=== PATIENT | male | born 1945 | race African-American/Black ===

== ENCOUNTER 2018-12-17 08:40 | Inpatient (IN) | payer OTHER ==
--- OUTSIDE RECORDS SUMMARY | 2018-12-17 08:42 | XMS REPORT ---
:1945 Author Organization eClinicalWorks Care Team Providers Name Role Phone Montano, Na Provider Role Unavailable Allergies, Adverse Reactions, Alerts Substance Reaction Event Type N.K.D.A. Info Not Available Non Drug Allergy Problems Problem Type Condition Code Onset Dates Condition Status Assessment Weakness R53.1 Active Assessment Unsteady gait R26.81 Active Assessment Pure hypercholesterolemia E78.00 Active Assessment PAD (peripheral artery disease) I73.9 Active Assessment Essential hypertension I10 Active Assessment Pacemaker Z95.0 Active Problem Swelling R60.9 Active Assessment Chronic congestive heart failure, I50.9 Active unspecified heart failure type Problem High cholesterol E78.00 Active Assessment Chronic a-fib I48.2 Active Problem Sinus problem J34.9 Active Problem Reflux K21.9 Active Problem Pure hypercholesterolemia E78.00 Active Problem Primary osteoarthritis of both M17.0 Active knees Problem Circulation problem I99.9 Active Assessment Acute pain of left knee M25.562 Active Assessment Bilateral lower extremity edema R60.0 Active Problem PAD (peripheral artery disease) I73.9 Active Assessment Primary osteoarthritis of both M17.0 Active knees Problem Chronic congestive heart failure, I50.9 Active unspecified heart failure type Problem Bilateral lower extremity edema R60.0 Active Problem Abnormal heart rhythm I49.9 Active Problem Ulcer L98.499 Active Problem Chronic a-fib I48.2 Active Problem Pacemaker Z95.0 Active Problem Unsteady gait R26.81 Active Problem Erectile dysfunction F52.21 Active Problem Essential hypertension I10 Active Problem Weakness R53.1 Active Problem HTN (hypertension) I10 Active Medications Medication Code Code Instructions Start End Date Status Dosage System Date Zestoretic [facility][NOTE 3] 56750824312 20-25 MG Orally Active 1 tablet Once a day Metoprolol [facility][NOTE 3] 28677570431 100 MG Orally Active 1 tablet Tartrate Twice a day with food Breo Ellipta [facility][NOTE 3] 48568707418 100-25 MCG/INH Active 1 puff Inhalation Once a day Results No Known Results Summary Purpose eClinicalWorks Submission
--- OUTSIDE RECORDS SUMMARY | 2018-12-17 08:42 | XMS REPORT ---
:1945 Author Organization eClinicalWorks Care Team Providers Name Role Phone Montano, Na Provider Role Unavailable Allergies, Adverse Reactions, Alerts Substance Reaction Event Type N.K.D.A. Info Not Available Non Drug Allergy Problems Problem Type Condition Code Onset Dates Condition Status Assessment Weakness R53.1 Active Assessment Unsteady gait R26.81 Active Assessment PAD (peripheral artery disease) I73.9 Active Assessment Pacemaker Z95.0 Active Assessment Chronic congestive heart failure, I50.9 Active unspecified heart failure type Problem Swelling R60.9 Active Assessment Primary osteoarthritis of both M17.0 Active knees Problem High cholesterol E78.00 Active Assessment Bilateral lower extremity edema R60.0 Active Problem Sinus problem J34.9 Active Problem Reflux K21.9 Active Problem Pure hypercholesterolemia E78.00 Active Problem Primary osteoarthritis of both M17.0 Active knees Problem Circulation problem I99.9 Active Assessment Essential hypertension I10 Active Assessment Pure hypercholesterolemia E78.00 Active Problem PAD (peripheral artery disease) I73.9 Active Assessment Chronic a-fib I48.2 Active Problem Chronic congestive heart failure, I50.9 Active [...] End Date Status Dosage System Date Zestoretic [facility] 39101933793 20-25 MG Orally Active 1 tablet Once a day Metoprolol [facility] 44737258521 100 MG Orally Active 1 tablet Tartrate Twice a day with food Breo Ellipta ND 05394158317 100-25 MCG/INH Active 1 puff Inhalation Once a day Results No Known Results Summary Purpose eClinicalWorks Submission
--- OUTSIDE RECORDS SUMMARY | 2018-12-17 08:42 | XMS REPORT ---
:1945 [facility] Team Providers Name Role Phone Montano, Na Provider Role Unavailable Allergies, Adverse Reactions, Alerts Substance Reaction Event Type N.K.D.A. Info Not Available Non Drug Allergy Problems Problem Type Condition Code Onset Dates Condition Status Assessment Weakness R53.1 Active Assessment Seasonal allergies J30.2 Active Assessment Unsteady gait R26.81 Active Assessment PAD (peripheral artery disease) I73.9 Active Assessment Pacemaker Z95.0 Active Assessment Chronic congestive heart failure, I50.9 Active unspecified heart failure type Assessment Primary osteoarthritis of both M17.0 Active knees Problem High cholesterol E78.00 Active Assessment Bilateral lower extremity edema R60.0 Active Problem Sinus problem J34.9 Active Assessment Chronic a-fib I48.2 Active Problem Pure hypercholesterolemia E78.00 Active Problem Bilateral lower extremity edema R60.0 Active Problem Reflux K21.9 Active Problem Primary osteoarthritis of both M17.0 Active knees Problem PAD (peripheral artery disease) I73.9 Active Assessment Essential hypertension I10 Active Problem Seasonal allergies J30.2 Active Assessment Pure hypercholesterolemia E78.00 Active Problem Ulcer L98.499 Active Problem Chronic congestive heart failure, I50.9 Active unspecified heart failure type Problem Circulation problem I99.9 Active Problem Abnormal heart rhythm I49.9 Active Problem Pacemaker Z95.0 Active Problem Weakness R53.1 Active Problem Unsteady gait R26.81 Active Problem Chronic a-fib I48.2 Active Problem Essential hypertension I10 Active Problem Swelling R60.9 Active Problem HTN (hypertension) I10 Active Problem Erectile dysfunction F52.21 Active Medications Medication Code Code Instructions Start End Date Status Dosage System Date Breo Ellipta [facility] 95638469638 100-25 MCG/INH Active 1 puff Inhalation Once a day Flonase ND 98818219530 50 MCG/DOSE Apr 30, Active 2 spray in Nasally Once a 2019 each day nostril Zestoretic [facility] 96501547959 20-25 MG Orally Active 1 tablet Once a day Cetirizine HCl [facility] 66301719767 10 MG Orally Apr 30June Active 1 tablet Once a day in AM 2018 Metoprolol [facility] 17149216294 100 MG Orally Active 1 tablet Tartrate Twice a day with food Results No Known Results Summary Purpose eClinicalWorks Submission
--- OUTSIDE RECORDS SUMMARY | 2018-12-17 08:43 | XMS REPORT ---
:1945 [facility] Team Providers Name Role Phone Montano, Na Provider Role Unavailable Allergies, Adverse Reactions, Alerts Substance Reaction Event Type N.K.D.A. Info Not Available Non Drug Allergy Problems Problem Type Condition Code Onset Dates Condition Status Assessment Chronic congestive heart failure, I50.9 Active unspecified heart failure type Assessment Pure hypercholesterolemia E78.00 Active Assessment PAD (peripheral artery disease) I73.9 Active Assessment Muscle cramps R25.2 Active Assessment Neuropathy G62.9 Active Problem Pure hypercholesterolemia E78.00 Active Assessment Bilateral lower extremity edema R60.0 Active Problem Reflux K21.9 Active Assessment Chronic a-fib I48.2 Active Problem Bilateral lower extremity edema R60.0 Active Problem Ulcer L98.499 Active Problem Chronic congestive heart failure, I50.9 Active unspecified heart failure type Problem Seasonal allergies J30.2 Active Problem Primary osteoarthritis of both M17.0 Active knees Problem Unsteady gait R26.81 Active Problem Neuropathy G62.9 Active Assessment Essential hypertension I10 Active Problem Circulation problem I99.9 Active Problem Abnormal heart rhythm I49.9 Active Problem PAD (peripheral artery disease) I73.9 Active Problem Essential hypertension I10 Active Problem Weakness R53.1 Active Problem HTN (hypertension) I10 Active Problem Chronic a-fib I48.2 Active Problem Pacemaker Z95.0 Active Problem High cholesterol E78.00 Active Problem Sinus problem J34.9 Active Problem Erectile dysfunction F52.21 Active Problem Swelling R60.9 Active Medications Medication Code Code Instructions Start End Date Status Dosage System Date Cetirizine HCl [facility] 88587636532 10 MG Orally Apr 30June Active 1 tablet Once a day in AM 2018 Flonase ND 21951203085 50 MCG/DOSE Apr 30, Active 2 spray in Nasally Once a 2019 each day nostril Breo Ellipta ND 14848027971 100-25 MCG/INH Active 1 puff Inhalation Once a day Zestoretic [facility] 06379954409 20-25 MG Orally Active 1 tablet Once a day Metoprolol [facility] 23941792754 100 MG Orally Active 1 tablet Tartrate Twice a day with food Gabapentin [facility] 69326762535 300 MG Orally Jun 10, Active 1 capsule Three times a 2018 day Gabapentin [facility] 00519639799 300 MG Orally Jun 10, Active 1 capsule Three times a 2018 day Results No Known Results Summary Purpose eClinicalWorks Submission
--- OUTSIDE RECORDS SUMMARY | 2018-12-17 08:43 | XMS REPORT ---
:1945 [facility] Address [address] [place] [address] Dr. Weller [address] [place] [id number] Care Team Providers Name Role Phone Unavailable Unavailable Unavailable Problems This patient has no known problems. Allergies, Adverse Reactions, Alerts This patient has no known allergies or adverse reactions. Medications This patient has no known medications.
--- OUTSIDE RECORDS SUMMARY | 2018-12-17 08:43 | XMS REPORT ---
:1945 Author Organization eClinicalWorks Care Team Providers Name Role Phone Montano, Na Provider Role Unavailable Allergies No Known Allergies Problems Problem Type Condition Code Onset Dates Condition Status Problem Bilateral lower extremity edema R60.0 Active Problem Ulcer L98.499 Active Problem Chronic congestive heart failure, I50.9 Active unspecified heart failure type Problem Seasonal allergies J30.2 Active Problem Unsteady gait R26.81 Active Problem Primary osteoarthritis of both M17.0 Active knees Problem Neuropathy G62.9 Active Problem Circulation problem I99.9 Active Problem Abnormal heart rhythm I49.9 Active Problem PAD (peripheral artery disease) I73.9 Active Problem Essential hypertension I10 Active Problem Weakness R53.1 Active Problem HTN (hypertension) I10 Active Problem Chronic a-fib I48.2 Active Problem Pacemaker Z95.0 Active Problem High cholesterol E78.00 Active Problem Sinus problem J34.9 Active Problem Erectile dysfunction F52.21 Active Problem Pure hypercholesterolemia E78.00 Active Problem Swelling R60.9 Active Problem Reflux K21.9 Active Medications Medication Code Code Instructions Start End Status Dosage System Date Date Gabapentin [facility] 53596637023 300 MG Orally Jun 10, Active 1 capsule Three times a 2019 day Flonase [facility] 23123856119 50 MCG/DOSE Apr 30, Active 2 spray in Nasally Once a 2018 each day nostril Albuterol [facility] [address]-90 (2.5 MG/3ML) Active INHALE 1 Sulfate 0.083% VIAL BY MOUTH VIA NEBULIZER 4 TIMES A DAY Lisinopril [facility] [address]-82 5 MG Orally Active 1 tablet twice a day Apixaban [facility] [address]-93 5 MG Orally Active not defined twice a day Breo Ellipta [facility] 72354246982 100-25 MCG/INH Active 1 puff Inhalation Once a day Metoprolol [facility] 75785198906 100 MG Orally Active 1 tablet Tartrate Twice a day with food Ipratropium [facility] [address]-10 0.02 % Active as directed [place] Inhalation 2.5 ml 4 times a day Digoxin [facility] 60936855785 250 MCG Orally Active 1 tablet Once a day Gabapentin [facility] 06347306590 300 MG Orally Jun 10, Active 1 capsule Three times a 2018 day Aspirin [facility] 98781883671 81 MG Orally Active 1 tablet Once a day Tamsulosin HCl [facility] [address]-62 0.4 MG Orally Active 1 capsule Once a day at bedtime Furosemide [facility] [address]-86 80 MG Orally Active 2 tablets Twice a day Zestoretic [facility] 93411923135 20-25 MG Orally Active 1 tablet Once a day Results No Known Results Summary Purpose eClinicalWorks Submission
--- OUTSIDE RECORDS SUMMARY | 2018-12-17 08:43 | XMS REPORT ---
[...] R60.9 Active Problem Reflux K21.9 Active Medications No Known Medications Results No Known Results Summary Purpose eClinicalWorks Submission
[2018-12-17 09:22] LABS: Protime INR 1.3
[2018-12-17 09:26] LABS: Basophils % 0.9 % (0-1.3); Hematocrit 36.5 % (39.6-49.0); Lymphocytes % 24.5 % (15.3-44.8); RBC Red Blood Cell Count 3.97 M/uL (4.33-5.43)
[2018-12-17] MEDS ORDERED: FUROSEMIDE 100 MG/10 ML VIAL IV ONE (09:29)
[2018-12-17] MEDS ORDERED: ONDANSETRON 4 MG/2 ML VIAL ONE (09:29)
[2018-12-17] MEDS ORDERED: NITROGLYCERIN 1 GM PKT TD ONE (09:29)
[2018-12-17] MEDS ORDERED: MORPHINE 2 MG/ML SYR ONE (09:29)
[2018-12-17 09:38] LABS: Albumin 3.1 g/dL (3.4-5.0); Bilirubin Direct 0.9 mg/dL (0-0.2); Bilirubin Total 3.1 mg/dL (0.2-1.0); Magnesium 2.1 mg/dL (1.8-2.4); Potassium 3.8 mmol/L (3.5-5.1); Protein, Total 7.2 g/dL (6.4-8.2); Troponin (Emerg Dept Use Only) 0.04 ng/mL (0.0-0.045)
[2018-12-17] MEDS ORDERED: ASPIRIN 81 MG CHEWABLE TABLET ONE (09:40)
[2018-12-17] MEDS ORDERED: METOPROLOL TAR 50 MG TAB ONE (09:40)
[2018-12-17] MEDS ORDERED: FAMOTIDINE 20 MG/2 ML VIAL IV ONE (09:40)
[2018-12-17] MEDS ORDERED: ENOXAPARIN 100 MG/ML SYR SQ ONE (09:40)
--- NOTE | 2018-12-17 10:38 | ER ---
Nurse's Notes [facility] Name: Myke Summers Age: 73 yrs Sex: Male : 1945 Arrival Date: 12/17/2018 Time: 08:45 Bed 5 Private MD: Anayeli Montano Diagnosis: Unspecified combined systolic (congestive) and diastolic (congestive) heart failure;Dyspnea;Hypoxemia;Atrial fibrillation and flutter-with RVR Presentation: 12/17 08:53 Presenting complaint: Bilateral lower leg swelling, SOB, and productive cough with hb whitish sputum x 2 day. Transition of care: patient was not received from another setting of care. Onset of symptoms was December 17, 2018. Risk Assessment: Do you want to hurt yourself or someone else? Patient reports no desire to harm self or others. Care prior to arrival: None. 08:53 Acuity: SIA 2 hb 08:53 Method Of Arrival: Ambulatory hb 08:55 Initial Sepsis Screen: Does the patient meet any 2 criteria? RR > 20 per min. HR > 90 sv bpm. Yes Does the patient have a suspected source of infection? Yes: Productive cough/pneumonia. Triage Assessment: 08:55 Respiratory: the patient has moderate shortness of breath. sv Historical: - Allergies: 08:54 No Known Allergies; hb - PMHx: 08:56 CHF; hb - Immunization history:: Adult Immunizations up to date. - Social history:: Smoking status: Patient/guardian denies using tobacco. - Ebola Screening: : No symptoms or risks identified at this time. - Family history:: not pertinent. Screenin:52 Abuse screen: Denies threats or abuse. Denies injuries from another. Nutritional sv screening: No deficits noted. Tuberculosis screening: No symptoms or risk factors identified. Fall Risk None identified. Assessment: 08:55 Reassessment: Pt wears O2 \T\ 3L per NC at home, pt came with no O2. O2 sat was 84% and sv placed on O2 \T\ 3L. General: Appears in no apparent distress. uncomfortable, well developed, Behavior is calm, cooperative, appropriate for age. Pain: Denies pain. Neuro: Level of Consciousness is awake, alert, obeys commands, Oriented to person, place, time, situation, Moves all extremities. Full function Gait is steady, Speech is normal. Cardiovascular: Heart tones S1 S2 present Patient's skin is warm and dry. Rhythm is atrial fibrillation With PVC's Chest pain is denied. Respiratory: Airway is patent Respiratory effort is even, unlabored, Respiratory pattern is symmetrical, tachypnea Breath sounds are diminished bilaterally. Derm: Skin is pink, warm \T\ dry. 08:55 EENT: Sclera/Cornea icteric. sv 09:32 Reassessment: Patient appears in no apparent distress at this time. No changes from sv previously documented assessment. Patient and/or family updated on plan of care and expected duration. Pain level reassessed. Patient is alert, oriented x 3, equal unlabored respirations, skin warm/dry/pink. 11:43 Reassessment: Patient appears in no apparent distress at this time. Patient and/or sv family updated on plan of care and expected duration. Pain level reassessed. Patient is alert, oriented x 3, equal unlabored respirations, skin warm/dry/pink. 13:16 Reassessment: Patient appears in no apparent distress at this time. Patient and/or sv family updated on plan of care and expected duration. Pain level reassessed. Patient is alert, oriented x 3, equal unlabored respirations, skin warm/dry/pink. Patient states symptoms have improved. Vital Signs: 08:52 BP 178 / 110; Pulse 107; Resp 28; Temp 97.9; Pulse Ox 84% on R/A; Weight 97.52 kg; hb Height 6 ft. 1 in. (185.42 cm); Pain 0/10; 09:49 BP 145 / 101; Pulse 101; Resp 30; Pulse Ox 94% on 4 lpm NC; sv 10:26 Pain 6/10; sv 10:46 BP 149 / 98; Pulse 84; Resp 28; Pulse Ox 96% on 4 lpm NC; sv 11:43 BP 138 / 97; Pulse 79; Resp 26; Pulse Ox 97% on 4 lpm NC; sv 12:35 BP 130 / 93; Pulse 86; Resp 16; Pulse Ox 96% on 3 lpm NC; sv 13:04 BP 142 / 90; Pulse 89; Resp 14; Pulse Ox 100% on 3 lpm NC; sv 08:52 Body Mass Index 28.37 (97.52 kg, 185.42 cm) ED Course: 08:45 Patient arrived in ED. dl4 08:45 Anayeli Montano MD is Private Physician. dl4 08:45 Initial lab(s) drawn, by me, sent to lab. First set of blood cultures drawn by me, EKG jb1 done, by laboratory development technician. reviewed by David Kennedy MD. 08:47 David Kennedy MD is Attending Physician. dima 08:51 Radha Espinal, RN is Primary Nurse. sv 08:52 Arm band placed on. sv 08:52 Patient has correct armband on for positive identification. Placed in gown. Bed in low sv position. Call light in reach. Adult w/ patient. teletypesetter monitor on. Pulse ox on. NIBP on. 08:54 Triage completed. hb 09:00 Second set of blood cultures drawn by me. jb1 09:10 X-ray(s) taken. sv 09:11 Inserted saline lock: 22 gauge in left forearm, using aseptic technique. Blood jb1 collected. 09:12 X-ray completed. Portable x-ray completed in exam room. Patient tolerated procedure jb2 well. 09:15 EKG done, by laboratory development technician. reviewed by David Kennedy MD. tc 09:17 XRAY Chest (1 view) In Process Unspecified. EDMS 10:34 Bhavana Tejeda MD is Hospitalizing Provider. dima 10:45 Awaiting bed assignment. sv 13:15 No provider procedures requiring assistance completed. Patient admitted, IV remains in sv place. intact. Administered Medications: 09:21 CANCELLED (Duplicate Order): morphine 2 mg Sub-Q once; RASS on ADMIN: Combtv4, Very dima Agttd3, Agttd2, Rstlss1, AlertClm0, Drwsy-1, Lt Sdtn-2, Mod Sdtn-3, Dp Sdtn-4, UnArsble-5 09:32 Drug: Nitro-Bid Ointment 2 % 1 inches Route: Transdermal; Site: anterior chest wall; sv 09:32 Drug: Zofran 4 mg Route: IVP; Site: right forearm; sv 09:48 Follow up: Response: No adverse reaction sv 09:34 Drug: morphine 2 mg {Note: RASS 0.} Route: IVP; Site: right forearm; sv 10:26 Follow up: Pain 6/10 Adult; Response: No adverse reaction; RASS: Alert and Calm (0) sv 09:36 Drug: Lasix 60 mg Route: IVP; Site: right forearm; sv 09:48 Follow up: Response: No adverse reaction sv 09:46 Drug: Aspirin 162 mg Route: PO; sv 10:26 Follow up: Response: No adverse reaction sv 09:46 Drug: Lovenox 90 mg Route: Sub-Q; Site: right lower abdomen; sv 10:26 Follow up: Response: No adverse reaction sv 09:47 Drug: Lopressor (metoprolol TARTRATE) 50 mg Route: PO; sv 10:26 Follow up: Response: No adverse reaction sv 09:47 Drug: Pepcid 20 mg Route: IVP; Site: right forearm; sv 10:26 Follow up: Response: No adverse reaction sv Output: 13:16 Urine: 1400ml (Voided); Total: 1400ml. sv Outcome: 10:38 Decision to Hospitalize by Provider. dima 13:15 Admitted to Tele accompanied by tech, via wheelchair, room 208, with oxygen, with sv chart, Report called to Tasha QUIJANO 13:15 Condition: stable 13:15 Instructed on the need for admit. 13:48 Patient left the ED. hb Signatures: Dispatcher [employer] EDMS Wade Madison jb1 Radha Espinal RN RN David Kennedy MD MD cha Buechter, Jesse jb2 Danuta Tse, development lead EKG [facility] Erlinda Mcnair RN RN hb Luna, David dl4 Corrections: (The following items were deleted from the chart) 09:48 09:34 morphine 2 mg IVP in right forearm sv sv
--- NOTE | 2018-12-17 10:39 | EDPHYS ---
Physician Documentation [facility] Name: Myke Summers Age: 73 yrs Sex: Male : 1945 Arrival Date: 12/17/2018 Time: 08:45 Bed 5 Private MD: Anayeli Montano ED Physician David Kennedy HPI: 12/17 09:30 This 73 yrs old Black Male presents to ER via Ambulatory with complaints of Leg dima Swelling, Breathing Difficulty. 09:30 The patient has shortness of breath at rest, with light activity. Onset: The dima symptoms/episode began/occurred 3 day(s) ago. The patient's shortness of breath has no apparent modifying factors. Associated signs and symptoms: Pertinent positives: non-productive cough, dizziness. Severity of symptoms: At their worst the symptoms were mild moderate in the emergency department the symptoms are unchanged. Historical: - Allergies: 08:54 No Known Allergies; hb - PMHx: 08:56 CHF; hb - Immunization history:: Adult Immunizations up to date. - Social history:: Smoking status: Patient/guardian denies using tobacco. - Ebola Screening: : No symptoms or risks identified at this time. - Family history:: not pertinent. ROS: 09:30 Constitutional: Negative for fever, chills, and weight loss, Eyes: Negative for injury, dima pain, redness, and discharge, ENT: Negative for injury, pain, and discharge, Neck: Negative for injury, pain, and swelling, Cardiovascular: Negative for chest pain, palpitations, and edema, Abdomen/GI: Negative for abdominal pain, nausea, vomiting, diarrhea, and constipation, Back: Negative for injury and pain, : Negative for injury, bleeding, discharge, and swelling, Skin: Negative for injury, rash, and discoloration, Neuro: Negative for headache, weakness, numbness, tingling, and seizure, Psych: Negative for depression, anxiety, suicide ideation, homicidal ideation, and hallucinations, Allergy/Immunology: Negative for hives, rash, and allergies, Endocrine: Negative for neck swelling, polydipsia, polyuria, polyphagia, and marked weight changes. 09:30 Respiratory: Positive for cough, shortness of breath, wheezing, expiratory. 09:30 MS/extremity: Positive for decreased range of motion, swelling, tenderness. Exam: 09:30 Constitutional: This is a well developed, well nourished patient who is awake, alert, dima and in no acute distress. Head/Face: Normocephalic, atraumatic. Eyes: Pupils equal round and reactive to light, extra-ocular motions intact. Lids and lashes normal. Conjunctiva and sclera are non-icteric and not injected. Cornea within normal limits. Periorbital areas with no swelling, redness, or edema. ENT: Nares patent. No nasal discharge, no septal abnormalities noted. Tympanic membranes are normal and external auditory canals are clear. Oropharynx with no redness, swelling, or masses, exudates, or evidence of obstruction, uvula midline. Mucous membranes moist. Neck: Trachea midline, no thyromegaly or masses palpated, and no cervical lymphadenopathy. Supple, full range of motion without nuchal rigidity, or vertebral point tenderness. No Meningismus. Chest/axilla: Normal chest wall appearance and motion. Nontender with no deformity. No lesions are appreciated. Abdomen/GI: Soft, non-tender, with normal bowel sounds. No distension or tympany. No guarding or rebound. No evidence of tenderness throughout. Back: No spinal tenderness. No costovertebral tenderness. Full range of motion. Male : Normal genitalia with no discharge or lesions. Skin: Warm, dry with normal turgor. Normal color with no rashes, no lesions, and no evidence of cellulitis. Neuro: Awake and alert, GCS 15, oriented to person, place, time, and situation. Cranial nerves II-XII grossly intact. Motor strength 5/5 in all extremities. Sensory grossly intact. Cerebellar exam normal. Normal gait. Psych: Awake, alert, with orientation to person, place and time. Behavior, mood, and affect are within normal limits. 09:30 Cardiovascular: Rate: tachycardic, Rhythm: irregularly irregular, Pulses: Pulses are 4+ in bilateral radial, brachial, femoral, popliteal, posterior tibial and and dorsalis pedis arteries.. Heart sounds: normal, Edema: 4+ edema to level of left midcalf and right midcalf, JVD: is noted bilaterally, to the angle of the jaw. Vital Signs: 08:52 BP 178 / 110; Pulse 107; Resp 28; Temp 97.9; Pulse Ox 84% on R/A; Weight 97.52 kg; hb Height 6 ft. 1 in. (185.42 cm); Pain 0/10; 09:49 BP 145 / 101; Pulse 101; Resp 30; Pulse Ox 94% on 4 lpm NC; sv 10:26 Pain 6/10; sv 10:46 BP 149 / 98; Pulse 84; Resp 28; Pulse Ox 96% on 4 lpm NC; sv 11:43 BP 138 / 97; Pulse 79; Resp 26; Pulse Ox 97% on 4 lpm NC; sv 12:35 BP 130 / 93; Pulse 86; Resp 16; Pulse Ox 96% on 3 lpm NC; sv 13:04 BP 142 / 90; Pulse 89; Resp 14; Pulse Ox 100% on 3 lpm NC; sv 08:52 Body Mass Index 28.37 (97.52 kg, 185.42 cm) hb MDM: 08:47 Patient medically screened. [facility] 09:33 Data reviewed: vital signs, nurses notes, lab test result(s), EKG, radiologic studies, dima plain films. 12/17 08:49 Order name: Basic Metabolic Panel; Complete Time: 10:14 [facility] 12/17 08:49 Order name: CBC with Diff; Complete Time: 10:14 [facility] 12/17 08:49 Order name: LFT's; Complete Time: 10:14 [facility] 12/17 08:49 Order name: Magnesium; Complete Time: 10:14 [facility] 12/17 08:49 Order name: NT PRO-BNP; Complete Time: 10:14 [facility] 12/17 08:49 Order name: PT-INR; Complete Time: 10:14 [facility] 12/17 08:49 Order name: Troponin (emerg Dept Use Only); Complete Time: 10:14 [facility] 12/17 08:49 Order name: Lipase; Complete Time: 10:14 [facility] 12/17 08:49 Order name: Urine Culture [facility] 12/17 08:58 Order name: Blood Culture Adult (2) 12/17 08:58 Order name: Ckmb; Complete Time: 10:14 12/17 08:58 Order name: CPK; Complete Time: 10:14 12/17 08:58 Order name: Lactate; Complete Time: 10:14 12/17 08:58 Order name: Procalcitonin; Complete Time: 10:14 12/17 08:49 Order name: XRAY Chest (1 view) [facility] 12/17 08:49 Order name: EKG; Complete Time: 08:51 [facility] 12/17 08:49 Order name: Cardiac monitoring; Complete Time: 08:51 [facility] 12/17 08:58 Order name: Urine Microscopic Only sv 12/17 09:33 Order name: Echo w/ Doppler [facility] 12/17 10:24 Order name: Diet Heart Healthy; Complete Time: 10:26 ar5 12/17 10:52 Order name: TSH [facility] 12/17 08:49 Order name: EKG - Nurse/Tech; Complete Time: 09:11 [facility] 12/17 08:49 Order name: IV Saline Lock; Complete Time: 09:12 [facility] 12/17 08:49 Order name: Labs collected and sent; Complete Time: 09:12 [facility] 12/17 08:49 Order name: O2 Per Protocol; Complete Time: 08:52 [facility] 12/17 08:49 Order name: O2 Sat Monitoring; Complete Time: 08:52 [facility] Administered Medications: 09:21 CANCELLED (Duplicate Order): morphine 2 mg Sub-Q once; RASS on ADMIN: Combtv4, Very dima Agttd3, Agttd2, Rstlss1, AlertClm0, Drwsy-1, Lt Sdtn-2, Mod Sdtn-3, Dp Sdtn-4, UnArsble-5 09:32 Drug: Nitro-Bid Ointment 2 % 1 inches Route: Transdermal; Site: anterior chest wall; sv 09:32 Drug: Zofran 4 mg Route: IVP; Site: right forearm; sv 09:48 Follow up: Response: No adverse reaction sv 09:34 Drug: morphine 2 mg {Note: RASS 0.} Route: IVP; Site: right forearm; sv 10:26 Follow up: Pain 6/10 Adult; Response: No adverse reaction; RASS: Alert and Calm (0) sv 09:36 Drug: Lasix 60 mg Route: IVP; Site: right forearm; sv 09:48 Follow up: Response: No adverse reaction sv 09:46 Drug: Aspirin 162 mg Route: PO; sv 10:26 Follow up: Response: No adverse reaction sv 09:46 Drug: Lovenox 90 mg Route: Sub-Q; Site: right lower abdomen; sv 10:26 Follow up: Response: No adverse reaction sv 09:47 Drug: Lopressor (metoprolol TARTRATE) 50 mg Route: PO; sv 10:26 Follow up: Response: No adverse reaction sv 09:47 Drug: Pepcid 20 mg Route: IVP; Site: right forearm; sv 10:26 Follow up: Response: No adverse reaction sv Disposition: 12/17/18 10:38 Hospitalization ordered by Bhavana Tejeda for Inpatient Admission. Preliminary diagnosis are Unspecified combined systolic (congestive) and diastolic (congestive) heart failure, Dyspnea, Hypoxemia, Atrial fibrillation and flutter - with RVR. - Bed requested for Telemetry/MedSurg (Inpatient). - Status is Inpatient Admission. hb - Condition is Fair. - Problem is new. - Symptoms have improved. UTI on Admission? No Signatures: Dispatcher [employer] EDRadha Valdez RN RN David Haines MD MD cha Baxter, Heather, RN RN hb Corrections: (The following items were deleted from the chart) 09:21 09:19 morphine 2 mg Sub-Q once; RASS on ADMIN: Combtv4, Very Agttd3, Agttd2, Rstlss1, dima AlertClm0, Drwsy-1, Lt Sdtn-2, Mod Sdtn-3, Dp Sdtn-4, UnArsble-5 ordered. dima 12:37 10:38 Hospitalization Ordered by Bhavana Tejeda MD for Inpatient Admission. Preliminary hb diagnosis is Unspecified combined systolic (congestive) and diastolic (congestive) heart failure; Dyspnea; Hypoxemia; Atrial fibrillation and flutter - with RVR. Bed requested for Telemetry/MedSurg (Inpatient). Status is Inpatient Admission. Condition is Fair. Problem is new. Symptoms have improved. UTI on Admission? No. dima 13:48 12:37 12/17/2018 10:38 Hospitalization Ordered by Bhavana Tejeda MD for Inpatient hb Admission. Preliminary diagnosis is Unspecified combined systolic (congestive) and diastolic (congestive) heart failure; Dyspnea; Hypoxemia; Atrial fibrillation and flutter - with RVR. Bed requested for Telemetry/MedSurg (Inpatient). Status is Inpatient Admission. Condition is Fair. Problem is new. Symptoms have improved. UTI on Admission? No. hb
--- NOTE | 2018-12-17 10:58 | RAD REPORT ---
EXAM DESCRIPTION: RAD - Chest Single View - 12/17/2018 9:16 am CLINICAL HISTORY: DYSPNEA Chest pain. COMPARISON: <Comparisons> FINDINGS: Portable technique limits examination quality. Mild interstitial pulmonary edema suspected. Area of airspace opacity in the right upper lobe lateral ly is suspicious for superimposed pneumonia. The heart is moderately enlarged with a multilead pacer device present.
[2018-12-17] MEDS ORDERED: ONDANSETRON 4 MG/2 ML VIAL IV PRN (11:15)
[2018-12-17] MEDS ORDERED: ACETAMINOPHEN 500 MG TAB PO PRN (11:15)
--- NOTE | 2018-12-17 13:48 | EKG ---
Test Date: 2018-12-17 Test Time: 09:02:58 Support Engineer: ANU MEASUREMENT RESULTS: Intervals: Rate: 107 WY: QRSD: 110 QT: 374 QTc: 499 Egan: P: WY: QRS: -21 T: 258 INTERPRETIVE STATEMENTS: Suspect unspecified pacemaker failure Atrial fibrillation with rapid ventricular response with premature ventricular or aberrantly conducted complexes Anteroseptal infarct, age undetermined ST & T wave abnormality, consider inferolateral ischemia Abnormal ECG Compared to ECG 04/03/2016 12:30:27 Ventricular premature complex(es) now present ST (T wave) deviation now present Possible ischemia now present Sinus rhythm no longer present Sinus arrhythmia no longer present Myocardial infarct finding still present Electronically Signed On 12-17-18 13:47:13 CDT by Dino Farah
--- NOTE | 2018-12-17 15:25 | ECHO ---
HEIGHT: 6 ft 1 in WEIGHT: 246 lb 5 oz DATE OF STUDY: 12/17/[address]: David Kennedy MD 2-DIMENSIONAL: YES M.MODE: YES DOPPLER: YES COLOR FLOW: YES TDS: PORTABLE: DEFINITY: BUBBLE STUDY: DIAGNOSIS: CHF CARDIAC HISTORY: CATHERIZATION: YES SURGERY: NO PROSTHETIC VALVE: NO PACEMAKER: YES MEASUREMENTS (cm) DIASTOLIC (NORMALS) SYSTOLIC (NORMALS) IVSd 1.4 (0.6-1.2) LA Diam 4.8 (1.9-4.0) LVEF 39% LVIDd 4.9 (3.5-5.7) LVIDs 4.0 (2.0-3.5) %FS 19% LVPWd 1.6 (0.6-1.2) Ao Diam 3.2 (2.0-3.7) 2 DIMENSIONAL ASSESSMENT: RIGHT ATRIUM: NORMAL LEFT ATRIUM: DILATED RIGHT VENTRICLE: PACEMAKER LEFT VENTRICLE: NORMAL SIZE TRICUSPID VALVE: NORMAL MITRAL VALVE: MITRAL ANNULAR CALCIFICATION PULMONIC VALVE: NORMAL AORTIC VALVE: SCLEROSIS PERICARDIAL EFFUSION: NONE AORTIC ROOT: NORMAL LEFT VENTRICULAR WALL MOTION: MODERATE GLOBAL HYPOKINESIS DOPPLER/COLOR FLOW: MILD MITRAL REGURGITATION AND TRICUSPID REGURGITATION. NORMAL RIGHT VENTRICULAR SYSTOLIC PRESSURE. COMMENTS: MILD MITRAL REGURGITATION AND TRICUSPID REGURGITATION. NORMAL RIGHT VENTRICULAR SYSTOLIC PRESSURE. MODERATE GLOBAL HYPOKINESIS. EF 39%. PACEMAKER IN RIGHT VENTRICLE. MITRAL ANNULAR CALCIFICATION. AORTIC SCLEROSIS. TECHNOLOGIST: ABRIL TATE
[2018-12-17] MEDS: FUROSEMIDE 40 MG/4 ML VIAL IV SCH (16:03)
[2018-12-17] MEDS: ALBUTEROL 2.5 MG/3 ML NEB SOL NEB SCH ×2 (16:10→20:00)
[2018-12-17 18:29] LABS: Urine Bacteria <20 /HPF (NONE SEEN); Urine Culture Reflex Order NOT NEEDED
[2018-12-17] MEDS: APIXABAN 5 MG TABLET PO SCH (21:42)
[2018-12-17] MEDS: METOPROLOL TAR 50 MG TAB PO SCH (21:42)
[2018-12-17] MEDS: TAMSULOSIN 0.4 MG SR CAP PO SCH (21:42)
--- NOTE | 2018-12-17 22:10 | CON ---
Date of Consultation: 12/17/2018 Reason For Consultation: Congestive heart failure. History Of Present Illness: The patient is a 73-year-old black male, has had a history of congestive heart failure before pacemaker, hypertension. He is very noncompliant with his medication. He told me that he has not been taking it. He is not compliant with his diet. Came in with shortness of br eath, significant pedal edema, abdominal swelling. No chest pain. Had some diaphoresis, but no naus ea or vomiting. Has been having PND, orthopnea, palpitations, but no syncope. He has ruled out for an [place]. His troponin is negative. His BNP is 6097. Chest x-ray shows congestive heart failure. EKG shows a paced rhythm. Allergies: NONE. Review of Systems: Negative. Social History: Negative. Family History: Noncontributory. Medications: At home are supposed to be metoprolol and Lasix as well as lisinopril and magnesium and potassium, but he has not been taking any medicine. Physical Examination: Vital Signs: Stable. He was afebrile by the time I saw him. He is in sinus rhythm. HEENT: Negative. Neck: Supple with a 3 cm JVD bilaterally. No bruit. No thyromegaly. Chest: Revealed diffuse rales at both bases. Cardiac: Revealed a regular rhythm and rate with an S3 gallops. No murmurs or rubs. Abdomen: Positive for ascites. Extremities: Revealed 3+ edema up to the thigh. Skin: Dry and intact. Pulses were present. Neurological: He was nonfocal. Diagnostic Data: As stated earlier. Impression And Plan: 1.Acute on chronic exacerbation of congestive heart failure. 2.Atrial fibrillation that is paroxysmal and has resolved. 3.Hypertension, well controlled. 4.History of pacemaker placement. 5.Noncompliance with therapy. I think Mr. Summers needs to be diuresed aggressively, probably at least 40 or 80 mg IV b.i.d. of Lasix. Needs to have his metoprolol continued. We need to watch his potassium and creatinine, his I and O s. I would not quite anticoagulated. I am not so sure he is compliant enough to be anticoagulated. I think aspirin would be the way to go for now. Echocardiogram is pending. We will continue to fol low. NB/MODL Voice ID: [id number] Report ID: [id number]
--- NOTE | 2018-12-18 01:23 | HP ---
Date of Admission: 12/17/2018 Code Status: Full. Chief Complaint: Shortness of breath. Consultants: Dr. Farah with Cardiology. History Of Present Illness: The patient is a 73-year-old male with past medical history of congestive heart failure; systolic dysfunction; last known EF is 30% to 35%; atrial fibrillation, was on anticoagulation; hypertension, who has not been on his medications for the past 2-3 months. Patient states that he ran out and did get a chance to follow up with his primary care physician, Dr. Millan. Patient has been experiencing worsening shortness of breath along with peripheral edema. He denies any nausea, vomiting, cough, fever, chills, or sputum production. No ill contacts. No chest pain. Patient' s symptoms are constant, moderate, progressively worsening. Symptoms are aggravated by exertion. Patient was brought into the ER by his brother. He was found to be in Afib with RVR - 110s His workup revealed BNP of 6097. His WBC count was normal. Chest x-ray showed congestive heart failure. Patient was given Lasix and then referred for admission. When seen in the ER, he was awake , alert, oriented x3 with mild distress. Past Medical History: Hypertension, systolic congestive heart failure, atrial fibrillation, severe pulmonary hypertension. Surgical History: Pacemaker defibrillator. Allergies: NO KNOWN DRUG ALLERGIES. Medications: Patient has not taken any medications in the past 2-3 months. Social History: Patient smokes a pack per day. He has been smoking for over 40 years. Drinks alcohol occasionally. No illicit drug use. Patient is independent in his activities of daily living. Lives alone. Does have family members that stop by. Family History: Patient denies any history of hypertension in the family. Review of Systems: Ten-point system reviewed, negative except as per HPI. Physical Examination: Vital Signs: Blood pressure 178/110, pulse 107, respirations 28, O2 of 84% on room air, temperature 97.9. Initially, patient's heart rate was approximately 115 with AFib with RVR. HEENT: Normocephalic, atraumatic. PERRLA. EOMI. Moist mucous membranes. Oropharynx is clear. Poor dentition. Conjunctivae anicteric. Neck: Supple. Patient has jugular venous distention. CV: S1, S2. Irregularly irregular. Rapid rate. Peripheral pulses weak bilaterally. Respiratory: Diminished breath sounds. Crackles present. Patient is mildly tachypneic. No use of accessory muscles. Gastrointestinal: Abdomen is soft, nontender, nondistended. Positive bowel sounds. No guarding or rigidity. Extremities: No clubbing or cyanosis. Patient has diffuse peripheral edema bilateral lower extremities 3+ up to the knees. No calf tenderness. Neuro: Cranial nerves 2 through 12 intact grossly. No focal neurological deficit. Speech is normal. Strength is symmetric bilateral upper and lower extremities. Sensation intact to light touch. Skin: No rashes. Normal skin turgor. Patient does have chronic venous stasis changes of bilateral lower extremities. Psych: Mood is okay. Affect is full. Insight and judgment are fair. Laboratory Data: WBC 4.3, H and H 11.9 and 36.5, platelets 175. Sodium 140, potassium 3.8, chloride 108, CO2 of 20, BUN 22, creatinine 1.14, glucose 103. Lactate 1.6, calcium 8.7, magnesium 2.1, total bilirubin 3.1, direct bilirubin 0.9. Troponin 0.04. BNP 6097. Procalcitonin less than 0.05. TSH 1.98. INR 1.3. UA is pending. Chest x-ray shows mild interstitial pulmonary edema suspected area of airspace opacity in the right upper lobe laterally, is suspicious for superimposed pneumonia. Heart is moderately enlarged with multilead pacer device present. Assessment: A 73-year-old male with: 1. Acute respiratory failure with hypoxia. Patient's O2 saturation was 80%, improved with nasal cannula secondary to congestive heart failure and atrial fibrillation. 2. Atrial fibrillation with rapid ventricular response rate was in the 110s to 115, improved with medications. We will start on beta-aman. Patient was taking Eliquis. We will, however, has not taken any blood thinners in the past 2-3 months. We will resume blood thinners once his home medications have been verified by Pharmacy. 3. Acute systolic congestive heart failure exacerbation. Last known ejection fraction is 30% to 35%. We will start on congestive heart failure guidelines. Monitor I's and O's strictly, daily weights, fluid restriction. Patient has been counseled with regarding compliance. 4. Noncompliance, intentional. 5. Essential hypertension. Resume home medications as appropriate. 6. Severe pulmonary hypertension. 7. Normocytic normochromic anemia, likely anemia of chronic disease. 8. Deep vein thrombosis prophylaxis. We will start on blood thinners for atrial fibrillation. Plan: Admit the patient to Med-Surg, place as inpatient. We will follow up on EKG. We will monitor echocardiogram. Consult Cardiology. Length of stay greater than 2 midnights. Repeat chest x-ray in a.m. Obtain speech therapy evaluation. Patient did have some choking with food attributing it to lack of proper dentition. Currently, white blood cell count is normal. Procalcitonin is negative. No signs or symptoms of sepsis or pneumonia. /MODL Voice ID: [id number] MTDD
[2018-12-18] MEDS: ALBUTEROL 2.5 MG/3 ML NEB SOL NEB SCH ×4 (02:00→20:00)
[2018-12-18 05:39] LABS: Albumin 2.9 g/dL (3.4-5.0); Bilirubin Total 1.8 mg/dL (0.2-1.0); Potassium 3.9 mmol/L (3.5-5.1); Protein, Total 6.7 g/dL (6.4-8.2)
[2018-12-18 05:47] LABS: Absolute Lymphocytes (CBC) 1.3 K/uL (0.7-4.9); Basophils % 0.8 % (0-1.3); Hematocrit 33.6 % (39.6-49.0); Lymphocytes % 36.5 % (15.3-44.8); MPV 9.5 fL (7.6-11.3); RBC Red Blood Cell Count 3.68 M/uL (4.33-5.43)
--- NOTE | 2018-12-18 07:57 | RAD REPORT ---
EXAM DESCRIPTION: Saqib Single View12/18/2018 6:46 am CLINICAL HISTORY: Shortness breath COMPARISON: December 17, 2018 FINDINGS: Mild improvement in bilateral pulmonary opacities. Right upper lobe opacity is partially r esolved. The heart is moderately to markedly enlarged. Pacemaker leads are in place. IMPRESSION: Mild improvement in CHF Partial resolution in right upper lobe opacity
[2018-12-18] MEDS ORDERED: FLUTICASONE 50MCG NASAL SPRAY NAS SCH ×2 (09:00)
[2018-12-18] MEDS ORDERED: LISINOPRIL 20 MG TAB PO SCH (09:00)
[2018-12-18] MEDS: DIGOXIN 0.25 MG TABLET PO SCH (09:06)
[2018-12-18] MEDS: ASPIRIN EC 81 MG TAB PO SCH (09:06)
[2018-12-18] MEDS: APIXABAN 5 MG TABLET PO SCH ×2 (09:06→20:45)
[2018-12-18] MEDS: METOPROLOL TAR 50 MG TAB PO SCH ×2 (09:07→20:45)
[2018-12-18] MEDS: FUROSEMIDE 40 MG/4 ML VIAL IV SCH (09:08)
--- NOTE | 2018-12-18 14:35 | PN ---
Date of Progress Note: 12/18/2018 Mr. Summers was admitted with congestive heart failure on 12/17/2018. He has a history of chronic systo lic congestive heart failure with acute exacerbation, ejection fraction of 35%. The patient is compl etely noncompliant with his medications. He ideally should be on beta-aman, DEIDRA inhibitor and Las ix, but he does not take any medications at home. Yesterday, he came in with serious edema at 3 or 3 + edema, ascites with increased abdominal girth. He has improved overnight on IV Lasix. I think he still needs aggressive diuresis, maybe going up on the Lasix dose to 80 mg b.i.d. He should be able to go home in a day or 2 and I recommended that he has outpatient followup with us in the next 2 week sruthi RUEDA/EVER Voice ID: [id number] Report ID: [id number]
[2018-12-18] MEDS: IPRATROPIUM BROM 0.5MG/2.5ML NEB PRN (15:45)
--- NOTE | 2018-12-18 17:20 | PN ---
Date of Progress Note: 12/18/2018 Subjective: Patient is seen and examined. Chart reviewed and case discussed with RN and Dr. Bergeron. Patient seems to be improving. Shortness of breath is better. Still has significant amount of lower extremity swelling. Medications: List reviewed. Physical Examination: Vital Signs: Temperature 97.3, heart rate 76, blood pressure 145/82, respirations 18, O2 of 98% on 2 L via nasal cannula. General: Awake, alert, oriented x3. Obese male, in some mild respiratory distress, ill-appearing. CV: S1, S2. Regular rate and rhythm. Respiratory: Diminished breath sounds. No wheezing. Patient does have crackles. Patient is tachypneic with mild use of accessory muscles. Gastrointestinal: Abdomen is soft, nontender, nondistended. Positive bowel sounds. Extremities: No clubbing, cyanosis. Patient has significant peripheral edema 3 +, somewhat improved from yesterday. Neurologic: Nonfocal. Laboratory Data: Sodium 139, potassium 3.9, chloride 109, CO2 of 25, BUN 25, creatinine 1.43, glucose 108, calcium 8.5, albumin 2.9. WBC 3.6, H and H 11.1 and 33.6, platelets 165. Blood cultures, no growth to date. Urine culture also pending. Chest x-ray; personally reviewed, shows mild improvement in CHF, partial resolution in right upper lobe opacity, heart is moderately enlarged. Echocardiogram; EF is 39%, mild mitral regurg and tricuspid regurg, normal right ventricular systolic pressure, moderate global hypokinesis, pacemaker in right ventricle, mitral annular calcification, aortic sclerosis. Assessment And Plan: A 73-year-old male with acute respiratory failure with hypoxia improved, currently on nasal cannula 3 L, unclear if patient uses oxygen at home secondary to congestive heart failure and atrial fibrillation. 1. Acute systolic congestive heart failure exacerbation, improving. Ejection fraction is 39% on echocardiogram. We will continue with fluid restriction and daily weights. Monitor I's and O's strictly. We will continue with CHF guidelines and encourage compliance. 2. Atrial fibrillation with rapid ventricular response, paroxysmal, now in regular rhythm. Patient was taking Eliquis, this has been resumed. 3. Noncompliance, intentional. 4. Essential hypertension, stable. 5. Severe pulmonary hypertension. 6. Normocytic, normochromic anemia, likely anemia of chronic disease. 7. Deep venous thrombosis prophylaxis. Patient is on Eliquis. 8. Acute kidney injury. We will decrease dose of Lasix. 9. COPD. Chronic bronchitis. Albuterol prn 10. Disposition. Patient still needs continued monitoring and aggressive diuresis with IV diuretics along with speech therapy evaluation. Chest x-ray does show some improvement. Patient still has significant amount of swelling, edema, and is dependent on oxygen at this moment. We will try to wean off O2 and likely discharge in the next 24 to 48 hours. /EVER Voice ID: [id number] Report ID: [id number] MTDD
[2018-12-18] MEDS: FUROSEMIDE 20 MG/ 2ML VIAL IV SCH (17:36)
[2018-12-18] MEDS: TAMSULOSIN 0.4 MG SR CAP PO SCH (20:45)
[2018-12-19] MEDS: ALBUTEROL 2.5 MG/3 ML NEB SOL NEB SCH ×4 (02:00→20:05)
[2018-12-19 05:52] LABS: Absolute Lymphocytes (CBC) 1.1 K/uL (0.7-4.9); Basophils % 0.9 % (0-1.3); Hematocrit 36.1 % (39.6-49.0); MPV 9.2 fL (7.6-11.3); RBC Red Blood Cell Count 3.92 M/uL (4.33-5.43)
[2018-12-19 06:10] LABS: Albumin 3.1 g/dL (3.4-5.0); Bilirubin Total 1.5 mg/dL (0.2-1.0); Potassium 3.7 mmol/L (3.5-5.1)
[2018-12-19] MEDS: FUROSEMIDE 20 MG/ 2ML VIAL IV SCH (09:06)
[2018-12-19] MEDS: LISINOPRIL 20 MG TAB PO SCH (09:06)
[2018-12-19] MEDS: DIGOXIN 0.25 MG TABLET PO SCH (09:07)
[2018-12-19] MEDS: APIXABAN 5 MG TABLET PO SCH ×2 (09:07→22:02)
[2018-12-19] MEDS: ASPIRIN EC 81 MG TAB PO SCH (09:07)
[2018-12-19] MEDS: METOPROLOL TAR 50 MG TAB PO SCH ×2 (09:07→22:02)
--- NOTE | 2018-12-19 14:36 | PN ---
Date of Progress Note: 12/19/2018 Subjective: Patient seen and examined. Chart reviewed and case discussed with RN. Patient states he is still having some shortness of breath. Apparently, he has been noncompliant, has been going around the nursing station and getting water and asking other people, family members to get water for him, noncompliant with his fluid restriction. Medications List: Reviewed. Physical Examination: Vital Signs: Temperature 97.6, heart rate 81, blood pressure 161/82, respirations 18, O2 at 98% on 2 L via nasal cannula. General: Awake, alert, oriented x3. Elderly male, obese, some mild distress. CV: S1, S2. Regular rate and rhythm. Pulses present. Respiratory: Diminished breath sounds. Crackles present. No wheezing or stridor. Gastrointestinal: Abdomen is soft, nontender, nondistended. Positive bowel sounds. Extremities: No clubbing or cyanosis. The patient has 2+ edema, bilateral lower extremities and calf swelling bilaterally. Neuro: Nonfocal. Laboratory Data: Sodium 141, potassium 3.7, chloride 106, CO2 of 28, BUN 25, creatinine 1.31, glucose 94, calcium 8.8, total bilirubin 1.5, albumin 3.1. WBC 3.6, H and H 11.7 and 36.1, platelets 173, neutrophils 54%. Blood cultures , no growth to date. Urine culture, no growth. Assessment And Plan: A 73-year-old male with: 1. Acute systolic congestive heart failure exacerbation. EF is 39%. We will adjust Lasix dose, will go up to 40 b.i.d. as the patient has been noncompliant with his fluid restriction. Continues to have some crackles. Kidney functions are somewhat better today. 2. Atrial fibrillation with RVR, paroxysmal, now back in regular rhythm, paced rhythm. The patient is on Eliquis. We will continue with beta blockers. 3. Noncompliance, intentional. 4. Essential hypertension, stable. 5. Severe pulmonary hypertension, stable. 6. Normocytic normochromic anemia, likely anemia of chronic disease. Continue to monitor H and H. No need for transfusion at this time. 7. Acute kidney injury, likely due to diuretics. Dose has been adjusted. We will continue to monitor, improving. 8. Deep venous thrombosis prophylaxis. Patient on Eliquis. 9. COPD. chronic bronchitis, albuterol prn Disposition: Likely discharged in the next 24 to 48 hours depending on clinical response. We will check Doppler sonogram to rule out DVT of the lower extremities. /EVER Voice ID: [id number] Report ID: [id number] MTDD
[2018-12-19] MEDS: FUROSEMIDE 40 MG/4 ML VIAL IV SCH (17:04)
--- NOTE | 2018-12-19 19:39 | RAD REPORT ---
EXAM DESCRIPTION: US - Extrem Venous W Compress Arturo - 12/19/2018 7:30 pm CLINICAL HISTORY: Bilateral lower extremity swelling COMPARISON: None. TECHNIQUE: Real-time sonographic evaluation of the bilateral lower extremity common femoral, superfi cial femoral, popliteal and posterior tibial veins was performed. FINDINGS: Normal compressibility, flow augmentation, phasic flow and spontaneous flow are identified in the left and right lower extremity common femoral, superficial femoral, popliteal and posterior t ibial veins. No intraluminal filling defects seen. IMPRESSION: No DVT in either lower extremity.
[2018-12-19] MEDS: TAMSULOSIN 0.4 MG SR CAP PO SCH (22:01)
[2018-12-20] MEDS: ALBUTEROL 2.5 MG/3 ML NEB SOL NEB SCH ×2 (01:35→08:15)
[2018-12-20 05:06] VITALS: BMI 31.1
[2018-12-20 07:08] LABS: Absolute Lymphocytes (CBC) 1.2 K/uL (0.7-4.9); Basophils % 0.8 % (0-1.3); Lymphocytes % 33.4 % (15.3-44.8); MPV 9.1 fL (7.6-11.3); RBC Red Blood Cell Count 3.95 M/uL (4.33-5.43)
[2018-12-20 07:13] LABS: Albumin 3.2 g/dL (3.4-5.0); Bilirubin Total 1.2 mg/dL (0.2-1.0); Potassium 3.7 mmol/L (3.5-5.1)
[2018-12-20] MEDS: IPRATROPIUM BROM 0.5MG/2.5ML NEB PRN (08:15)
[2018-12-20] MEDS: DIGOXIN 0.25 MG TABLET PO SCH (09:39)
[2018-12-20] MEDS: METOPROLOL TAR 50 MG TAB PO SCH (09:41)
[2018-12-20] MEDS: ASPIRIN EC 81 MG TAB PO SCH (09:41)
[2018-12-20 09:42] VITALS: BP 173/86; TEMP 97.3
[2018-12-20] MEDS: FUROSEMIDE 40 MG/4 ML VIAL IV SCH (09:42)
[2018-12-20] MEDS: LISINOPRIL 20 MG TAB PO SCH (09:42)
[2018-12-20] MEDS: APIXABAN 5 MG TABLET PO SCH (09:42)
[2018-12-20 11:30] VITALS: O2SAT 95
--- NOTE | 2018-12-20 11:42 | DS ---
Date of Discharge: 12/20/2018 Bark Fitter: Dr. Farah. Admitting Diagnoses: 1.Acute respiratory failure with hypoxia. 2.Atrial fibrillation with rapid ventricular rate. 3.Acute systolic congestive heart failure exacerbation. 4.Noncompliance, intentional. 5.Essential hypertension. 6.Severe pulmonary hypertension. 7.Normocytic normochromic anemia. Discharge Diagnoses: 1.Acute systolic congestive heart failure exacerbation, improved. Ejection fraction 39%. 2.Atrial fibrillation with rapid ventricular rate, paroxysmal, now back in regular rhythm. 3.Noncompliance, intentional. 4.Essential hypertension, stable. 5.Disuse myopathy. 6.Severe pulmonary hypertension. 7.Normocytic normochromic anemia, likely anemia of chronic disease. 8.Acute kidney injury, resolved. 9.Obesity, body mass index 31. 10.Status post pacemaker. Hospital Course: Patient is a 73-year-old male with past medical history of hypertension, CHF, atria l fibrillation on anticoagulation, who had not been on his medications for the past several months, s tating that he had run out and did not follow up. Patient comes in with shortness of breath. He als o had atrial fibrillation with RVR rate in the 110s. Patient was started on Lasix, CHF guidelines, b eta blockers, he converted back to sinus rhythm. Patient did require supplemental oxygen. His initi al O2 saturation was in the 80s. Patient was seen by Cardiology, Dr. Farah. Echocardiogram was ob tained, which showed EF of 39%. Patient does have a pacemaker present. Patient was counseled regard ing compliance with his medications. His chest x-ray showed improvement. His breathing was better. Patient was then cleared for discharge. His Doppler study was negative for DVT. His swelling had i mproved. Patient had a negative fluid balance. He had dropped 11 pounds of weight. Home Health was to be set up for him due to patient needing assistance with ambulation. Condition: Fair. Activity: Ambulate with assist. Medications: As per medication reconciliation list. Prescriptions for all of his home medications w ere given as he has been out of his home medications. Followup: Follow up with primary care physician in 2-3 days follow up with milk route deliverer, Dr. Farah in 2 weeks. Return to ER for worsening condition. Diet: Low-sodium, fluid-restricted diet 1500 mL per day. Physical Examination: General: Awake, alert, oriented x3. Elderly male. Obese. CV: S1-S2. Respiratory: Diminished breath sounds, however, significantly improved. Gastrointestinal: Abdomen is soft, nontender, nondistended. Positive bowel sounds. Extremities: No clubbing or cyanosis. 1+ peripheral edema improved significantly from previous. Neurologic: Nonfocal. Time Spent: Total time spent discharging patient was 41 minutes. /EVER Voice ID: [id number] Report ID: [id number]
== END 2018-12-20 13:02 | disposition home health service (06) | DRG 291 ==
LOC: ER 08:40 → ERHOLD 11:11 → 2ND 13:15
PROVIDERS: ADMIT Family Medicine; ATTEND Family Medicine
DX: I11.0 Hypertensive heart disease with heart failure (principal); I50.21 Acute systolic (congestive) heart failure; J96.01 Acute respiratory failure with hypoxia; N17.9 Acute kidney failure, unspecified; I48.0 Paroxysmal atrial fibrillation; G72.89 Other specified myopathies; D64.9 Anemia, unspecified; E66.9 Obesity, unspecified; Z68.31 Body mass index [BMI] 31.0-31.9, adult; I27.20 Pulmonary hypertension, unspecified; J44.9 Chronic obstructive pulmonary disease, unspecified; Z91.19 Patient's noncompliance with other medical treatment and regimen; Z95.0 Presence of cardiac pacemaker
CPT/HCPCS: 36415; 71045; 80048; 80053; 80076; 81015; 82550; 82553; 83605; 83690; 83735; 83880; 84145; 84443; 84484; 85025; 85610; 87040; 87086; 87088; 92610; 93005; 93306; 93970; 94640; 94760; 96372; 96374; 96375; 97116; 97161; 97530; 99285; J1650; J1940; J2270; J2405